=== PATIENT | male | born 1960 | race Caucasian/White ===

== ENCOUNTER 2020-10-04 09:57 | Inpatient (IN) | payer OTHER ==
[~2020-10-04] VITALS: Ht 182.9 cm; Wt 122.5 kg
[2020-10-04 09:59] VITALS: BP 150/74
[2020-10-04 10:52] LABS: ABSOLUTE NEUTROPHILS 4.2 thou/uL (1.4-8.2); BASOPHILS 0.6 % (0.0-2.0); EOSINOPHILS 6.9 % (0.0-3.0); HEMATOCRIT 40.9 % (42.0-52.0); LYMPHOCYTES 20.7 % (24.0-44.0); MCH 30.2 pg (26.0-34.0); MCHC 34.2 g/dL (28.0-37.0); MCV 88.2 fL (80.0-100.0); MONOCYTES 8.2 % (1.0-8.0); PLATELET COUNT 191 thou/uL (150-400); POLYS 63.6 % (36.0-66.0); RBC 4.64 mil/uL (4.50-6.00); RDW 13.4 % (10.5-14.5); WBC 6.6 thou/uL (4.0-11.0)
[2020-10-04 11:00] LABS: CALCIUM 8.9 mg/dL (8.5-10.1); POTASSIUM 3.5 mmol/L (3.5-5.1)
[2020-10-04 11:06] LABS: ALBUMIN 3.7 g/dL (3.4-5.0); TOTAL BILIRUBIN 0.9 mg/dL (0.2-1.0); TOTAL PROTEIN 7.5 g/dL (6.4-8.2)
[2020-10-04 12:32] LABS: URINE BILIRUBIN NEGATIVE (Negative); URINE BLOOD NEGATIVE (Negative); URINE CLARITY CLEAR; URINE COLOR YELLOW; URINE GLUCOSE-RANDOM* NEGATIVE (Negative); URINE KETONES NEGATIVE (Negative); URINE LEUKOCYTES-REFLEX NEGATIVE (Negative); URINE NITRITE-REFLEX NEGATIVE (Negative); URINE PROTEIN (DIPSTICK) NEGATIVE (Negative)
--- NOTE | 2020-10-04 13:59 | NUR ---
PT ORIGINALLY REFUSING MORPHINE, D/T NOT WANTING TO SIT IN BED TO BE MONITORED AND HIS PAIN WAS TOLERABLE NOW STATING PAIN IS INCREASING AND WOULD LIKE MEDICATION. DR GRESHAM AT BEDSIDE
[2020-10-04] MEDS ORDERED: CHLORTHALIDONE50 MG PO (14:41)
[2020-10-04] MEDS ORDERED: ASA81BEC PO (14:41)
[2020-10-04 15:51] VITALS: BP 153/72
[2020-10-04 16:49] VITALS: BP 184/92
[2020-10-04 17:17] VITALS: BP 157/91
--- NOTE | 2020-10-04 18:10 | NUR ---
ASSUMED PT CARE AT 1700 FROM ED. PT IS ALERT & ORIENTED X4. PT IS UP AD ALVARO. PT HAS IV SITE ON R AC 20 GAUGE. PT TOLERATED DIET THIS PM. AWAITING FOR DR ORDER. PT ON THE BED, BED ON THE LOWEST POSITION, SIDE RAILS UP X2, CALL LIGHT WITHIN REACH. WILL CONTINUE TO MONITOR PT. FOLLOW POC.
[2020-10-04 19:38] VITALS: BP 141/85
--- NOTE | 2020-10-05 03:15 | NUR ---
ASSESSED AT START OF SHIFT PT A&OX4. DENIES N/V. RATES NEED FOR PAIN MED ON ASSESSMENT. PT NPO AT MIDNIGHT. IV INTACT AND FLUIDS STARTED. PT UP ADLIB TO THE BATHROOM. ENLARGE SCROTUM NOTED. CALL LIGHT AT REACH WILL CONT TO MONITOR.
[2020-10-05 07:21] VITALS: BP 122/79
--- NOTE | 2020-10-05 09:33 | NUR ---
PATIENT OFF UNIT FOR SURGERY WITH DR. WEINER.
[2020-10-05] MEDS ORDERED: NORCO5 PO (11:59)
[2020-10-05 14:39] VITALS: BP 122/79
[2020-10-05 15:00] VITALS: BP 143/85
--- NOTE | 2020-10-05 15:06 | NUR ---
PATIENT BACK ON UNIT POST OP. PLAN TO DISCHARGE THIS EVENING. PATIENT RESTING POST ANESTHESIA, DENIES ANY PAIN OR DISCOMFORT. VSS. ON ROOM AIR. SPOKE WITH SISTER ABOUT DISCHARGE. WILL BE HERE AROUND 1630/1700 TO TRANSPORT HOME.
[2020-10-05 15:15] VITALS: BP 150/74
--- NOTE | 2020-10-05 15:33 | NUR ---
PT ADMITTED RELATED TO RT INGUINAL HERNIA, SCROTAL PAIN. CM REVIEWED CHART AND SPOKE WITH CARE TEAM. CM MET WITH PT AT BEDSIDE THIS DAY. PT APPEARED TO BE A&O X4. CM ROLE INTRODUCED. PT INDICATED HE LIVES IN A HOUSE ALONE WITH NO STEPS TO ENTER AND A FULL FLIGHT OF STEPS INSIDE. 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 PT INDICATED NO HH OR PCP. PT INDICATED HE IS GOING TO HIS SISTERS HOUSE [place]ON [place] WITH 3-5 STEPS TO ENTER AND NONE HE WILL HAVE TO USE INSIDE. CM PROVIDED [facility] PACKET AND LIST OF PCPS HERE. PT'S FAMILY TO PROVIDE TRANSPORT HOME THIS DAY. CARE TEAM INDICATED PT IS MEDICALLY STABLE TO DC HOME TO SELF CARE. NO OTHER CM INTERVENTION INDICATED. CASE CLOSED.
[2020-10-05 15:45] VITALS: BP 145/90
--- NOTE | 2020-10-06 09:07 | O ---
[facility] [place] [address] OPERATIVE REPORT Name: RAMAKRISHNA NEFF Room #: 462-P [facility] M.R.#: [id number] Admission: 10/04/20 Attend Phys: Christopher Shipley, Discharge: 10/05/20 Date of : 56 Report #: [id number] THIS REPORT FOR: cc: FAM - No family physician/PCP FAM - No family physician/PCP Christopher Shipley MD ~ DOC #: [id number] Christopher Shipley MD DATE OF SERVICE: 10/05/2020 PREOPERATIVE DIAGNOSIS: Incarcerated right inguinal hernia. POSTOPERATIVE DIAGNOSIS: Incarcerated right inguinal hernia. OPERATION: Laparoscopic repair of incarcerated right inguinal hernia with mesh. SURGEON: Christopher Shipley MD ANESTHESIA: General. ESTIMATED BLOOD LOSS: Minimal. SPECIMEN: None. DESCRIPTION OF PROCEDURE: After informed consent was obtained, the patient was brought to the operating room and placed supine. SCDs were placed and working, preoperative antibiotics were administered, general anesthesia was induced. The abdomen was prepped and draped in the usual sterile fashion. A 10 mm incision was made above the umbilicus. Fascia was incised and a trocar was placed. Pneumoperitoneum was established. A right upper quadrant 5 mm trocar was placed. Two left lower quadrant 5 mm trocars were eventually placed. He had a very large right inguinal hernia that was extending into his scrotum. This was able to be reduced somewhat. I then incised the peritoneum at the right ASIS. Cautery dissection was made down through the peritoneum and the peritoneum was incised and reflected inferiorly. I was able to identify the very large hernia sac. This was a direct and indirect and a pantaloon type hernia. The hernia sac was able to be fully reduced after quite some time of careful dissecting away the hernia sac and to protect the iliac vessels. Once this had been done, I was able to fully reduce all of the contents of the hernia sac. This was mostly sigmoid colon and right colon. I then was able to identify Edenilson's ligament. A large Bard 3D Max mesh was inserted. It was tacked to Edenilson's ligament with 2 absorbable tacks. I then reapproximated the peritoneum with the tacker and the mesh was 100% covered. The ports were then removed under direct vision. The fascia at the umbilicus was closed with [id number] 0 Vicryl. Skin was closed with 4-0 Monocryl. Incisions were [facility] [address] [place] [address] OPERATIVE REPORT Name: RAMAKRISHNA NEFF Room #: 462-P [facility] IN .R.#: [id number] Admission: 10/04/20 Attend Phys: Christopher Shipley, Discharge: 10/05/20 Date of : 56 Report #: [id number] sealed with Dermabond. COMPLICATIONS: None. DISPOSITION: The patient was taken to recovery in satisfactory condition. Christopher Shipley MD JDP/SAT <ELECTRONICALLY SIGNED> By: Christopher Shipley MD 10/06/20 0907 1225 1235 Christopher Shipley MD /nt
== END 2020-10-05 17:27 | disposition home or self-care (01) | DRG 352 ==
LOC: ER 09:57 → 4W 16:49 → ER 16:49 → 4W 17:04
PROVIDERS: Emergency Medicine; ADMIT Surgery; ATTEND Surgery
PROC: 0YU54JZ Supplement Right Inguinal Region with Synthetic Substitute, Percutaneous Endoscopic Approach (ICD-10-PCS; principal; 2020-10-05)
DX: K40.90 Unilateral inguinal hernia, without obstruction or gangrene, not specified as recurrent (principal); I10 Essential (primary) hypertension; Z20.822 Contact with and (suspected) exposure to COVID-19; Z79.899 Other long term (current) drug therapy; Z72.89 Other problems related to lifestyle; Z79.82 Long term (current) use of aspirin
CPT/HCPCS: 10040; 50010; 50101; 50411; 50555; 50848; 50854; 52265; 52266; 53307; 53314; 56525; 56526; 58574; 58586; 62110; 62900; 70005